=== PATIENT | male | born 1960 ===

== ENCOUNTER 2017-10-30 07:44 | Day surgery (SDC) | payer BC, MEDICAID ==
[2017-10-30] MEDS ORDERED: Propofol 10 mg/ml Inj (20 ML) ONE (10:17)
[2017-10-30] MEDS ORDERED: Lidocaine Hydrochloride 5 ML INJ ONE (10:44)
[2017-10-30 11:02] VITALS: TEMP 98.4; O2SAT 99
[2017-10-30 11:17] VITALS: PULSE 72; RESP 14
[2017-10-30 13:20] VITALS: BP 111/70
== END 2017-10-30 11:57 | disposition home or self-care (01) ==
LOC: C.ENDO 07:44
PROVIDERS: ATTEND Internal Medicine Gastroenterology
DX: K21.0 Gastro-esophageal reflux disease with esophagitis (principal); K29.50 Unspecified chronic gastritis without bleeding; Z12.11 Encounter for screening for malignant neoplasm of colon; K64.1 Second degree hemorrhoids
CPT/HCPCS: 43239; 45378; 82948; 88305; J2704

== ENCOUNTER 2018-07-15 23:39 | Emergency (ER) | payer BC, MEDICAID ==
[2018-07-15 23:52] VITALS: BP 112/69; PULSE 80; RESP 20; TEMP 97.6; O2SAT 100
[2018-07-16] MEDS ORDERED: Enoxaparin 40 mg Syringe SC STA (00:23)
[2018-07-16] MEDS ORDERED: Enoxaparin 100 mg Syringe ONE (00:34)
--- NOTE | 2018-07-16 00:37 | C.PDOC ---
History Of Present Illness 57 year old male presents to the ER with a complaint of right leg swelling for the past 2 weeks gradually worsening since onset. Patient states a month ago he began feeling pain in the soles of his feet and paresthesias. He has his doctor and got x-rays of his right foot done on 07/04/18 that were negative for fracture. Today swelling has worsened with increased pain when walking. Denies trauma, SOB, chest pain, recent surgeries or immobilizations. PMD: Dr. Traylor Time Seen by Provider: 07/15/18 23:50 Chief Complaint (Nursing): Lower Extremity Problem/Injury History Per: Patient History/Exam Limitations: no limitations Onset/Duration Of Symptoms: Days Current Symptoms Are (Timing): Still Present Recent travel outside of the [place]: No Past Medical History Reviewed: Historical Data, Nursing Documentation, Vital Signs Vital Signs: Last Vital Signs Temp 97.6 F 07/15/18 23:45 Pulse 80 07/15/18 23:45 Resp 20 07/15/18 23:45 BP 112/69 07/15/18 23:45 Pulse Ox 100 07/15/18 23:45 - Medical History PMH: Diabetes Denies: Chronic Kidney Disease Family History: States: Diabetes - Social History Hx Alcohol Use: No Hx Substance Use: No - Immunization History Hx Tetanus Toxoid Vaccination: No Hx Influenza Vaccination: No Hx Pneumococcal Vaccination: No Review Of Systems Except As Marked, All Systems Reviewed And Found Negative. Musculoskeletal: Positive for: Other (Right leg pain and swelling) Neurological: Negative for: Weakness, Numbness Physical Exam - Physical Exam Appears: Well, No Acute Distress Respiratory: Normal Breath Sounds, No Accessory Muscle Use, No Rales, No Rhonchi, No Wheezing, Other (No respiratory distress) Extremity: Other (Right lower extremity pedal and lower leg pitting 1+ edema, no right foot tenderness, positive right mild right calf tenderness to palpation, light touch intact, dorsal flexion and plantar flexion of right foot intact, no warmth. Left lower extremity normal.) Pulses: Left Dorsalis Pedis: Normal, Right Dorsalis Pedis: Normal ED Course And Treatment O2 Sat by Pulse Oximetry: 100 Medical Decision Making Medical Decision Making: Impression: Unilateral leg swelling Concern for DVT, lovenox given for treatment, advised to return in the morning for US to rule out DVT. Disposition - Disposition Referrals: Podiatry Clinic [Outside] Disposition: HOME/ ROUTINE Disposition Time: 00:24 Condition: STABLE Additional Instructions: REGRESA EN LA MANANA A HACER MONIKA ULTRASOUND DE [place] A CHEQAR POR COAGULO RETURN IN THE MORNING TO GET AN ULTRASOUND OF YOUR LEG TO CHECK FOR BLOOD CLOT KEEP LEG ELEVATED MUCH POSSIBLE TAKE MOTRIN OR TYLENOL OR PAIN Instructions: Venous Duplex Ultrasound, Deep Vein Thrombosis (Blood Clots in the Legs) (DC) - Clinical Impression Clinical Impression: Right leg swelling - Scribe Statement The provider has reviewed the documentation as recorded by the Scribvinay Kirkland All medical record entries made by the Scribe were at my direction and personally dictated by me. I have reviewed the chart and agree that the record accurately reflects my personal performance of the history, physical exam, medical decision making, and the department course for this patient. I have also personally directed, reviewed, and agree with the discharge instructions and disposition.
--- NOTE | 2018-07-16 00:39 | C.PDOC ---
Time Seen by Provider: 07/15/18 23:50 Chief Complaint (Nursing): Lower Extremity Problem/Injury Past Medical History Vital Signs: Last Vital Signs Temp 97.6 F 07/15/18 23:45 Pulse 80 07/15/18 23:45 Resp 20 07/15/18 23:45 BP 112/69 07/15/18 23:45 Pulse Ox 100 07/15/18 23:45 - Medical History PMH: Diabetes Denies: Chronic Kidney Disease Family History: States: Diabetes - Social History Hx Alcohol Use: No Hx Substance Use: No - Immunization History Hx Tetanus Toxoid Vaccination: No Hx Influenza Vaccination: No Hx Pneumococcal Vaccination: No ED Course And Treatment O2 Sat by Pulse Oximetry: 100 Disposition Counseled Patient/Family Regarding: Studies Performed, Diagnosis, Need For Followup - Disposition Referrals: Podiatry Clinic [Outside] Disposition: HOME/ ROUTINE Disposition Time: 00:24 Condition: STABLE Additional Instructions: REGRESA EN LA MANANA A HACER MONIKA ULTRASOUND DE [place] A CHEQAR POR COAGULO RETURN IN THE MORNING TO GET AN ULTRASOUND OF YOUR LEG TO CHECK FOR BLOOD CLOT KEEP LEG ELEVATED MUCH POSSIBLE TAKE MOTRIN OR TYLENOL OR PAIN Instructions: Deep Vein Thrombosis (Blood Clots in the Legs) (DC), Venous Duplex Ultrasound - Clinical Impression Clinical Impression: Right leg swelling
== END 2018-07-16 00:40 | disposition home or self-care (01) ==
LOC: C.ER 23:39
DX: M79.89 Other specified soft tissue disorders (principal); E11.9 Type 2 diabetes mellitus without complications
CPT/HCPCS: 82948; 96372; 99283; J1650

== ENCOUNTER 2018-07-16 09:19 | Emergency (ER) | payer BC, MEDICAID ==
--- NOTE | 2018-07-16 10:22 | C.PDOC ---
History Of Present Illness 57 y/o male,w/PMhx of diabetes, presents to the ER for evaluation of right leg swelling which has been present for the past 3 days. Patient states that he was evalauted for similar complaint last night. At the time, he was instructed to return to the ER for Doppler Study. Denies having weakness and numbness. Time Seen by Provider: 07/16/18 09:26 Chief Complaint (Nursing): Lower Extremity Problem/Injury History Per: Patient History/Exam Limitations: no limitations Onset/Duration Of Symptoms: Days Current Symptoms Are (Timing): Still Present Severity: Moderate Past Medical History Reviewed: Historical Data, Nursing Documentation, Vital Signs Vital Signs: Last Vital Signs Temp 97.9 F 07/16/18 09:29 Pulse 77 07/16/18 09:29 Resp 20 07/16/18 09:29 BP 119/71 07/16/18 09:29 Pulse Ox 100 07/16/18 09:29 - Medical History PMH: Diabetes Denies: Chronic Kidney Disease Other Surgeries: Hx of surgeries Family History: States: Diabetes - Social History Hx Alcohol Use: No Hx Substance Use: No - Immunization History Hx Tetanus Toxoid Vaccination: No Hx Influenza Vaccination: No Hx Pneumococcal Vaccination: No Review Of Systems Except As Marked, All Systems Reviewed And Found Negative. Musculoskeletal: Positive for: Leg Pain (right leg pain) Neurological: Negative for: Weakness, Numbness Physical Exam - Physical Exam Appears: Non-toxic, No Acute Distress Skin: Normal Color, Warm, Dry Head: Atraumatic, Normacephalic Eye(s): bilateral: Normal Inspection Nose: Normal Oral Mucosa: Moist Neck: Supple Chest: Symmetrical Cardiovascular: Rhythm Regular Respiratory: Normal Breath Sounds, No Rales, No Rhonchi, No Wheezing Extremity: Normal ROM, No Tenderness, Swelling (swelling to right leg) Neurological/Psych: Oriented x3, Normal Speech Gait: Steady ED Course And Treatment O2 Sat by Pulse Oximetry: 100 (RA) Pulse Ox Interpretation: Normal Progress Note: Doppler lower extremity: (-) DVT as per tech Reassessment Condition: Unchanged Medical Decision Making Medical Decision Making: Plan: --Venous Duplex Scan- Low Ext. Sunday. Disposition Counseled Patient/Family Regarding: Studies Performed, Diagnosis, Need For Followup - [facility] [Outside] Disposition: HOME/ ROUTINE Disposition Time: 12:00 Condition: STABLE Additional Instructions: Keep legs elevated Instructions: Dependent Edema (DC) Forms: [employer] (Lao) Print Language: GERMAN - POA Present On Arrival: None - Clinical Impression Clinical Impression: Right leg swelling - PA / [employer] / Resident Statement MD/DO has reviewed & agrees with the documentation as recorded. - Scribe Statement The provider has reviewed the documentation as recorded by the Doraibe Nguyễn Davis Provider Attestation All medical record entries made by the Doraibvinay were at my direction and personally dictated by me. I have reviewed the chart and agree that the record accurately reflects my personal performance of the history, physical exam, medic al decision making, and the department course for this patient. I have also personally directed, reviewed, and agree with the discharge instructions and disposition.
[2018-07-16 12:08] VITALS: BP 108/68; PULSE 76; RESP 18; TEMP 97.8
--- NOTE | 2018-07-16 13:24 | VASCLAB ---
Date of service: 07/16/2018 PROCEDURE: Lower Extremity Venous Duplex Exam. HISTORY: Swelling PRIORS: None. TECHNIQUE: Bilateral common femoral, femoral, popliteal and posterior tibial, peroneal and great saphenous veins were evaluated. Flow was assessed with color Doppler, compressibility, assessment of phasic flow and augmentation response. Report prepared by ELOINA Sabillon, RVT FINDINGS: RIGHT: 1. Common Femoral Vein: 1.1. Compressibility - Fully compressible: Thrombus - None : Flow - Phasic: Augmentation -Normal: Reflux - None. 2. Femoral Vein: 2.1. Compressibility - Fully compressible: Thrombus - None : Flow - Phasic: Augmentation -Normal: Reflux - None. 3. Popliteal Vein: 3.1. Compressibility - Fully compressible: Thrombus - None : Flow - Phasic: Augmentation -Normal: Reflux - None. 4. Posterior Tibial Vein: 4.1. Compressibility - Fully compressible: Thrombus - None: Flow - Phasic: Augmentation -Normal: Reflux - None. 5. Peroneal Vein: 5.1. Compressibility - Fully compressible: Thrombus - None: Flow - Phasic: Augmentation -Normal: Reflux - None. 6. Great Saphenous Vein: 6.1. Compressibility - Fully compressible: Thrombus - None: Flow - Phasic: Augmentation - Normal: Reflux - None. LEFT: 1. Common Femoral Vein: 1.1. Compressibility - Fully compressible: Thrombus - None: Flow - Phasic: Augmentation -Normal: Reflux - None. 2. Femoral Vein: 2.1. Compressibility - Fully compressible: Thrombus - None: Flow - Phasic: Augmentation -Normal: Reflux - None. 3. Popliteal Vein: 3.1. Compressibility - Fully compressible: Thrombus - None : Flow - Phasic: Augmentation -Normal: Reflux - None. 4. Posterior Tibial Vein: 4.1. Compressibility - Fully compressible: Thrombus - None: Flow - Phasic: Augmentation -Normal: Reflux - None. 5. Peroneal Vein: 5.1. Compressibility - Fully compressible: Thrombus - None: Flow - Phasic: Augmentation -Normal: Reflux - None. 6. Great Saphenous Vein: 6.1. Compressibility - Fully compressible: Thrombus - None: Flow - Phasic: Augmentation - Normal: Reflux - None. OTHER FINDINGS: Right: None significant. Left: None significant. IMPRESSION: Right: No evidence of deep or superficial vein thrombosis of the right lower extremity. Normal valve function noted of the right side. Left: No evidence of deep or superficial vein thrombosis of the left lower extremity. Normal valve function noted of the left side.
[2018-07-16 16:51] VITALS: O2SAT 100
== END 2018-07-16 12:40 | disposition home or self-care (01) ==
LOC: C.ER 09:19
DX: M79.89 Other specified soft tissue disorders (principal)